=== PATIENT | male | born 1975 | race Caucasian/White ===

== ENCOUNTER 2019-11-02 21:10 | Emergency (ER) | payer OTHER, SELFPAY ==
[2019-09-26 17:35] VITALS: BMI 27.4
[2019-11-02 21:11] VITALS: BP 157/87; PULSE 101; RESP 18; TEMP 36.8; O2SAT 95; BMI 28.8
[2019-11-02 21:23] VITALS: BP 147/101; PULSE 103; RESP 16; O2SAT 96
--- NOTE | 2019-11-02 22:18 | RAD_ITS ---
STUDY: X-RAY CHEST REASON FOR EXAM: Male, 44 years old. PT PRESENTS WITH COUGH, HTN, PALPITATIONS AND HEADACHE. TECHNIQUE: Single AP portable view of the chest. COMPARISON: 02/28/2016. CT chest 11/02/2019. FINDINGS: There are superimposed monitor leads. The lungs are clear and expanded. There is no demonstrated pleural abnormality. Normal size heart. Normal mediastinum and tatianna. Normal visualized pulmonary arteries. Normal visualized aortic arch and descending thoracic aorta. Normal visualized thoracic spine. Normal visualized ribs, clavicles, and shoulders. There is no demonstrated abnormality of the visualized soft tissue structures of the upper abdomen. RAD/Chest 1 View (Portable) IMPRESSION: No acute cardiopulmonary disease. No significant interval change. Electronically Signed: Selene Dunham MD at 23:33 EDT , Service support ,
[2019-11-02 22:26] LABS: Absolute Lymphocyte Count 2.36 X10^3/uL (0.83-4.51); Absolute Neutrophil Count 7.6 X10^3/uL (2.0-7.7); Basophil# 0.06 X10^3/uL; Basophil% 0.5 % (0-1); Eosinophil# 0.14 X10^3/uL; Eosinophils% 1.3 % (0-5); Hematocrit 42.9 % (40-54); Hemoglobin 15.9 g/dL (13.0-16.5); Lymphocyte # 2.36 X10^3/ul (4.0); Lymphocyte % 21.4 % (19-41); Mean Corp Hgb Conc 37.1 g/dL (32-36); Mean Corpuscular Hgb 31.5 pg (27.0-32.0); Mean Corpuscular Volume 85.1 fL (80-94); Mean Platelet Vol. 9.8 fl (6.2-12.0); Monocyte# 0.79 X10^3/uL; Monocyte% 7.2 % (0-10); NRBC Flagged by Analyzer 0 % (0-5); Neutrophil % 69.1 % (47-70); Platelet Count 324 K/mm3 (150-450); RBC Distribution Width CV 11.9 % (11.6-14.6); Red Blood Count 5.04 M/mm3 (4.6-6.2)
[2019-11-02 22:30] VITALS: BP 126/84; PULSE 96; RESP 21; TEMP 37; O2SAT 94
[2019-11-02 22:38] LABS: ALB/GLOB Ratio 1.1 RATIO (0.9-2.4); AST(SGOT) 25 U/L (15-37); Alanine Aminotransfer ALT/SGPT 25 U/L (16-61); Alkaline Phosphatase 95 U/L (45-117); Anion Gap 10 (5-15); BUN 11 mg/dL (7-18); BUN/Creat Ratio 12.2 RATIO (10-20); Calcium,Total 8.5 mg/dL (8.5-10.1); Chloride 106 mmol/L (98-107); EST Glomerular Filtration Rate 96 mL/min (>60); Est Glom Filt Rate - Afr Amer 116 mL/min (>60); Estimated Creatinine Clearance 89.21 ml/min; Globulin 3.6 g/dL (2.2-4.2); Glucose 119 mg/dL (74-106); Potassium 3.6 mmol/L (3.5-5.1); Protein, Total 7.6 g/dL (6.4-8.2); Sodium Level 140 mmol/L (136-145)
--- NOTE | 2019-11-02 22:43 | ED.VIS.GEN ---
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 It initially started with upper respiratory symptoms and ear fullness but then progressed to cough, chest burning, chest tightness, and shortness of breath. He has also had subjective fevers. He does not recall specific exposure to COVID-19 illness but does work closely with other construction workers on site. He drives his own truck but does share other equipment. He denies any significant respiratory history. No asthma. No history of PE. The onset of his symptoms has been gradual. The severity is moderate. Prior similar symptoms: No Recent Illness/Hospitalization: No Capacity - Capacity Assessment Tool Can the patient make a choice & communicate that choice?: Yes Past Medical History - Allergies and Home Meds Allergies/Adverse Reactions: Allergies No Known Allergies Allergy (Verified 11/02/19 21:11) Primary Care Physician: Kedar Tolliver MD [Primary Care Provider] - Smoking Status: Former smoker Drugs: None Review of Systems General: Reports: Fever, Malaise. Denies: Chills, Sweats Eyes: Denies: Visual changes - bilaterally, Diplopia ENT: Denies: Rhinorrhea, Sore throat Cardiovascular: Reports: Chest pain. Denies: Palpitations Respiratory: Reports: Dyspnea, Cough. Denies: Dyspnea on exertion Gastrointestinal: Reports: Nausea. Denies: Abdominal pain, Vomiting, Diarrhea, Melena, Hematochezia Genitourinary: Denies: Dysuria, Hematuria, Frequency Musculoskeletal: Denies: Back pain, Extremity Pain Skin: Denies: Rash, Wounds Neurological: Denies: Headache, Weakness, Numbness Physical Exam Vital Signs/Narrative: Vital Signs Temp Pulse Resp BP Pulse Ox 11/02/19 21:23 103 H 16 147/101 H 96 11/02/19 21:11 98.2 F 101 H 18 157/87 H 95 General: Well nourished, Well developed, No Acute Distress Head: Normocephalic, Atraumatic Eyes: Perrl, EOMI ENT: Moist mucous membranes, No rhinorrhea Neck: Supple, Nontender Cardiovascular: Regular rate, Regular rhythm, No murmurs Respiratory: No distress, CTA bilaterally, Chest nontender Abdomen: Soft, Nontender, Nondistended, Normal bowel sounds Back: Nontender, Normal Inspection Extremities: Nontender, No edema Skin: Normal color, No rash Neurological: Alert, Oriented x3, Cranial nerves II-XII grossly intact, Normal Strength, Normal Sensation Psychological: Normal affect, Normal Mood Diagnostic/Tx/Re-eval - Medical Decision Making Labs are within normal limits. Initial chest x-ray clear. Troponin negative after over a week of symptoms. No exertional chest pain, diaphoresis, or other atypical cardiac type symptoms. He was having chest tightness however and there was also concern for coronavirus infection so we elected to perform CT angiogram of his chest. No evidence of PE. No groundglass infiltrates, and no other concerning pulmonary findings. He looks quite well on reexamination. Less tachypneic. Pulse oximetry 96% on room air. Feels much better after IV fluids. He is comfortable going home with close follow-up. Coronavirus test is still pending but he would prefer that I call him with the results. He will continue to quarantine. Return precautions explained at length and the importance of close follow-up also explained. He states that his cough is becoming somewhat productive and he has had actually for over a week so I do think treatment with antibiotics is reasonable at this point. He was started on Zithromax and given his first dose here. ED Disposition - Plan for ED Patient: Disposition: Home or Assisted Living Diagnosis: Suspected COVID-19 virus infection, Lower resp. tract infection Instructions: Acute Bronchitis Prescriptions: Azithromycin [Zithromax] 250 mg PO DAILY #4 tablet Referrals: Kedar Tolliver MD [Primary Care Provider] -
--- NOTE | 2019-11-02 22:52 | CT_ITS ---
STUDY: CTA CHEST REASON FOR EXAM: Male, 44 years old. CHEST TIGHTNESS/COUGH/elevated heart rate RADIATION DOSAGE (If Supplied By Facility): CTDIvol = ( 10.58 ) mGy, DLP = ( 433.14 ) mGycm TECHNIQUE: The examination was performed with the intravenous administration of Isovue 300-75ml. Post-processing of the angiographic images was performed, with multiplanar reformation and 3D reconstruction. Individualized dose optimization techniques were used for this CT. COMPARISON: Chest x-ray portable 11/02/2019. FINDINGS: Normal enhancement of the main pulmonary artery and right and left pulmonary arteries. Normal enhancement of the bilateral peripheral pulmonary arteries. There is no demonstrated pulmonary embolism. Normal thoracic aorta and visualized great vessels. There is no demonstrated aortic dissection. Normal heart and pericardium. Normal mediastinum. Normal hilar regions. Normal visualized trachea and bronchi. The lungs are well expanded. Normal pulmonary parenchyma. Normal pleura. Normal chest wall structures. Age-appropriate osseous structures. Normal visualized upper abdomen. CT/CTA Chest W/WO Contrast IMPRESSION: Normal CTA chest examination, without a demonstrated pulmonary embolism or arterial dissection. Electronically Signed: Selene Dunham MD at 23:35 EDT , Service support ,
[2019-11-02 23:23] VITALS: BP 132/80; PULSE 95; RESP 25; TEMP 37; O2SAT 96
[2019-11-02] MEDS: 0.9% Normal Saline 1,000 ML 999 ML IV (23:27)
[2019-11-03 00:06] VITALS: BP 140/93; PULSE 91; RESP 16; O2SAT 98
[2019-11-03] MEDS: Azithromycin 250 MG Tablet 500 MG PO (00:08)
== END 2019-11-03 00:09 | disposition home or self-care (01) ==
PROVIDERS: Emergency Provider Emergency Medicine; PCP Family Medicine
DX: J22 Unspecified acute lower respiratory infection (principal); Z87.891 Personal history of nicotine dependence
CPT/HCPCS: 71045; 71275; 80053; 84484; 85025; 87635; 96360; 99284; G2023; J7030; Q9967; A4216; U0002

== ENCOUNTER → 2021-01-26 10:57 | Outpatient (CLI) | payer OTHER, SELFPAY ==
--- NOTE | 2021-01-26 13:35 | NEURO ---
NCS and/or EMG Patient Report Ordering Doctor: Dunia Yusuf DATE OF SERVICE: 01/26/21 Akira Rankin presents for electrodiagnostic testing of the right upper limb. He reports numbness and tingling in the right hand, primarily the third digit. Electrodiagnostic findings right median motor nerve demonstrates prolonged latency with normal amplitude and conduction velocity. Normal right ulnar motor response. Normal median ulnar F-wave. Prolonged right median sensory latency at the wrist. Normal ulnar and radial sensory responses. On needle EMG, all muscles tested in the right upper limb showed no evidence of denervation with normal motor unit action potentials. Electrodiagnostic impression: This is an abnormal study in the right upper limb 1. Electrodiagnostic findings demonstrate right-sided median mononeuropathy. This is consistent with a mild right carpal tunnel syndrome.
== END ==
LOC: PSN 10:57
PROVIDERS: PCP Family Medicine; Referring Provider Physician Assistant; Visit Provider Physician Assistant
DX: M25.531 Pain in right wrist (principal); R20.0 Anesthesia of skin; R20.2 Paresthesia of skin
CPT/HCPCS: 95886; 95910

== ENCOUNTER 2021-04-11 07:29 | Emergency (ER) | payer OTHER, SELFPAY ==
[2021-04-11 07:30] VITALS: BP 156/103; PULSE 86; RESP 16; TEMP 36.1; O2SAT 98; BMI 26.6
--- NOTE | 2021-04-11 07:47 | EKG12_ITS ---
Test Reason : BACK PAIN/SOB Blood Pressure : / mmHG Vent. Rate : 073 BPM Atrial Rate : 073 BPM P-R Int : 150 ms QRS Dur : 086 ms QT Int : 374 ms P-R-T Axes : 025 008 001 degrees QTc Int : 412 ms Normal sinus rhythm Low voltage QRS (Limb Leads) Nonspecific T wave abnormality Confirmed by YURY TEMPLE, ELIDA ([id number]), website/blog editor CONNER PATEL ([id number]) on 04/13/2021 8:59:59 AM Referred By: DULCE Confirmed By:ELIDA COTTON MD
--- NOTE | 2021-04-11 07:47 | RAD_ITS ---
STUDY: X-RAY CHEST REASON FOR EXAM: Male, 45 years old. Chest pain TECHNIQUE: PA and lateral views of the chest. COMPARISON: Comparison is made with prior study dated 11/02/2019. FINDINGS: Mild degree of increased markings in the right middle lobe suggestive of atelectasis and/or early infiltrate. There is no demonstrated pleural abnormality. Normal size heart. Normal mediastinum and tatianna. Normal visualized pulmonary arteries. Normal visualized aortic arch and descending thoracic aorta. There are degenerative changes of the visualized thoracic spine. Normal visualized ribs, clavicles, and shoulders. There is no demonstrated abnormality of the visualized soft tissue structures of the upper abdomen. RAD/Chest PA and Lateral IMPRESSION: Mild degree of increased markings in the right middle lobe suggestive of atelectasis and/or early infiltrate. Electronically Signed: Alex Contreras MD at 8:34 EDT , Service support ,
--- NOTE | 2021-04-11 07:48 | EX.ED.DYSGE1 ---
HPI History of Present Illness Chief Complaint: Back Narrative Narrative: Patient is a 45-year-old male who presents to the ER with complaint of right upper back pain. He states he went bowling yesterday and then did some work in his basement moving some boards. He states that there was no direct motion which led to sudden increase in pain. He states that during the evening he felt the pain come on gradually and that the pain is constant but will spontaneously worsen for short periods of time. He reports it feels like there is a charley horse in his back. He denies any hematuria or dysuria he denies any loss of bowel or bladder control or IV drug use. He states the pain has been persistent throughout the evening and secondary to this presents for evaluation [facility] Medical History (Updated 04/11/21 @ 09:[address], ) Hypertension Home Medications lisinopril 10 mg PO DAILY 02/28/16 [History Last Taken Unknown] doxycycline hyclate 100 mg PO BID #20 cap 04/11/21 [Rx Last Taken Unknown] methocarbamol 500 mg PO Q6H PRN #56 tab 04/11/21 [Rx Last Taken Unknown] Allergy/AdvReac Type Severity Reaction Status Date / Time No Known Allergies Allergy Verified 04/11/21 07:32 Social History (Updated 09/23/20 @ 10:52 by Jesus GLEASON, PA) Smoking Status: Former smoker ROS ROS ED Constitutional Constitutional ED: Denies chills or fever(s) ENT ENT ED: Denies sore throat Cardiovascular Cardiovascular: Denies chest pain Respiratory/Chest Respiratory/Chest: Denies cough or dyspnea Gastrointestinal Gastrointestinal: Denies abdominal pain, diarrhea, nausea or vomiting Genitourinary Genitourinary ED: Denies dysuria or hematuria Musculoskeletal Musculoskeletal: Reports back pain; Denies myalgias Integumentary Denies rash Neurologic Neurologic: Denies headache(s) or paresthesias Hematologic/Lymphatic Hematologic/Lymphatic: Denies easy bleeding or easy bruising EXAM Physical Exam Const Vital Signs: 04/11/21 07:30 Temperature 97.0 F L Temperature Source Temporal Pulse Rate 86 Respiratory Rate 16 Blood Pressure 156/103 H Blood Pressure Mean 120 Pulse Ox 98 Oxygen Delivery Method Room Air Positive well nourished and well developed General Appearance ED: well developed Eyes PERRL and EOMs intact bilaterally Neck supple Resp normal respiratory effort and clear to auscultation bilaterally Cardio regular rate and regular rhythm Rate: other Other Details: Radial pulses are plus 2 out of 4 bilaterally are equal and symmetric GI normal to inspection, nondistended, normoactive bowel sounds, non-tender, non-distended and no masses GI Narrative: No voluntary guarding or rigidity no pulsatile mass Auscultation: normoactive bowel sounds Palpation: soft Back/Spine Back/Spine Narrative: No bony deformity or step-off of the thoracic or lumbar spine no midline pain with palpation. There is right sided parathoracic tension and spasm noted mainly along the right inferior scapula portion of the back. Pain worsens with extension and rotation. Negative straight leg raise. No clonus or Babinski. Patellar reflexes are plus 2 out of 4 bilaterally. No saddle anesthesia. Extremity normal to inspection Neuro oriented x3 and CN's II-XII intact bilaterally Sensorium / Orientation: alert Motor Exam: strength 5/5 throughout Psych mental status grossly normal Skin no rashes or lesions noted MDM MDM MDM Narrative Medical decision making narrative: Patient presented to the ER with right upper back pain with no known trauma. Clinically it is most consistent with musculoskeletal causes as it worsens with extension and rotation. However based on the area of the pain I did elect to perform an EKG urine sample and chest x-ray. Urine showed no signs of infection or blood and therefore low concern for kidney stone. Chest x-ray revealed no pneumomediastinum infiltrate pneumothorax or widened mediastinum. It did show atelectasis versus early infiltrate in the right middle lobe. As this is near the area he has pain I will elect to place him on antibiotics but as he has no signs of respiratory distress there is no need for further work-up. After Toradol and Norflex patient reported improvement of symptoms and is now resting comfortable. Therefore at this time with no obvious signs of cardiac event on EKG x-ray going against a possible dissection as he does not have a widened mediastinum and his symptoms have improved he is safe for discharge Lab Data Attestation: I reviewed the patient's lab results. Labs: Laboratory Results - last 24 hr 04/11/21 08:07 Urine Color Straw Urine Clarity Clear Urine pH 7.0 Ur Specific [place] 1.005 Urine Protein Negative Urine Glucose (UA) Normal Urine Ketones Negative Urine Occult Blood Negative Urine Nitrite Negative Urine Bilirubin Negative Urine Urobilinogen Normal Ur Leukocyte Esterase Negative Urine RBC 0 SEEN Urine WBC 0 SEEN Ur Squamous Epith Cells 0 SEEN Urine Bacteria 0 SEEN Urine Mucus 0 SEEN Radiography Diagnostic Testing: Clinical Impression(s) from Imaging Studies Chest X-Ray 04/11/21 07:47 IMPRESSION: Mild degree of increased markings in the right middle lobe suggestive of atelectasis and/or early infiltrate. Electronically Signed: Alex Contreras MD at 8:34 EDT , Service support , Discharge Plan Triage Chief Complaint: Back ED Provider: Sandro St Dx/Rx/DC Orders Clinical Impression: Acute thoracic myofascial strain Instructions: ED Back Spasm, No Trauma Prescriptions: New methocarbamol 500 mg tablet 500 mg PO Q6H PRN (Reason: Muscle pain/spasm) Qty: 56 RF: 0 doxycycline hyclate 100 mg capsule 100 mg PO BID Qty: 20 RF: 0 No Action lisinopril 10 MG tablet 10 mg PO DAILY RF: 0 Primary Care Provider: Kedar Tolliver Referrals: Kedar Tolliver MD [Primary Care Provider] - Disposition Disposition: Home, Self Care
[2021-04-11] MEDS: Orphenadrine 60 MG/2 ML Ampul IM (07:58)
[2021-04-11] MEDS: Ketorolac 30 MG/ML Syringe IM (07:58)
[2021-04-11 08:09] LABS: Bacteria 0 SEEN /hpf (None Seen); Mucous, Urine 0 SEEN /hpf (<or=2+); Red Blood Cells-Urine 0 SEEN /hpf (0-5); Squamous Epithelial Cells - UA 0 SEEN /hpf (0-5); White Blood Cells 0 SEEN /hpf (0-5)
[2021-04-11 08:12] LABS: Color, Urine Straw (Yellow); Glucose, Dipstick Normal (Normal); Ketone-Dipstick Negative (Negative); Leukocyte Esterase-Dipstick Negative /ul (Negative); Nitrite-Dipstick Negative (Negative); Occult Blood-Urine Negative /ul (Negative); Protein-Dipstick Negative (Negative); Specific Gravity, Urine 1.005 (1.002-1.030); Urine Bilirubin Dipstick Negative (Negative); Urine Clarity Clear (Clear); Urine Urobilinogen Normal (Normal)
[2021-04-11 09:44] VITALS: BP 138/74; PULSE 73; RESP 15; O2SAT 98
== END 2021-04-11 09:45 | disposition home or self-care (01) ==
PROVIDERS: Emergency Provider Emergency Medicine; PCP Family Medicine
DX: S29.012A Strain of muscle and tendon of back wall of thorax, initial encounter (principal); I10 Essential (primary) hypertension; Z79.899 Other long term (current) drug therapy; Z87.891 Personal history of nicotine dependence; X50.0XXA Overexertion from strenuous movement or load, initial encounter; Y93.54 Activity, bowling; Y92.89 Other specified places as the place of occurrence of the external cause; Y99.8 Other external cause status
CPT/HCPCS: 71046; 81001; 93005; 96372; 99283